=== PATIENT | female | born 1965 | race Caucasian/White ===

== ENCOUNTER → 2023-12-18 08:06 | Outpatient (REF) | payer OTHER, SELFPAY ==
[2023-12-18 10:37] LABS: Urine Albumin Negative (Neg - Trace); Urine Bilirubin Negative (Negative); Urine Character Clear (Clear); Urine Color Yellow; Urine Glucose Negative (Negative); Urine Ketone Negative (Negative); Urine Leukocyte 1+ (Negative); Urine Nitrite Negative (Negative); Urine Occult Blood 3+ (Negative); Urine Specific Gravity 1.025 (<1.030); Urine Urobilinogen Negative (Neg - 1+)
[2023-12-18 11:02] LABS: % Basophils 1.1 % (0-2); % Eosinophils 4.8 % (0-6); % Immature Granulocytes 0.2 % (0-0.5); % Lymphocytes 33.3 % (20.5-51.1); % Monocytes 7.3 % (1.7-9.3); % Neutrophils 53.3 % (42.2-75.2); Absolute Basophils 0.1 10^3/uL (0-0.2); Absolute Eosinophils 0.3 10^3/uL (0-0.7); Absolute Lymphocytes 1.9 10^3/uL (1.2-3.4); Absolute Monocytes 0.4 10^3/uL (0.1-0.6); Hematocrit 43.6 % (37.0-47.0); Hemoglobin 14.1 g/dL (12.0-16.0); Mean Corp Hgb Conc. 32.3 g/dL (33.0-37.0); Mean Corpuscular Volume 89.7 fL (81.0-99.0); Mean Platelet Volume 9.9 fL (7.4-10.4); Nucleated Red Blood Cells % 0 %; Platelet Count 238 10^3/uL (130-400); Red Blood Cell Count 4.86 10^6/uL (4.20-5.40); Red Cell Dist. Width 13.9 % (11.5-14.5); White Blood Cell Count 5.6 10^3/uL (4.8-10.8)
[2023-12-18 11:05] LABS: ALT (SGPT) 15 U/L (0-35); AST (SGOT) 22 U/L (14-36); Albumin 4.5 g/dl (3.5-5.0); Alkaline Phosphatase 59 U/L (38-126); Blood Urea Nitrogen 22 mg/dl (7-17); Calcium 9.5 mg/dl (8.4-10.2); Carbon Dioxide 29 mmol/L (22-30); Chloride 105 mmol/L (98-107); Glucose 94 mg/dl (70-99); HDL Cholesterol 62 mg/dl; LDL Cholesterol, Calculated 176 mg/dl; Potassium 4.6 mmol/L (3.5-5.1); Sodium 141 mmol/L (135-145); Total Bilirubin 0.4 mg/dl (0.2-1.3); Total Cholesterol 263 mg/dl (50-199); Total Protein 6.8 g/dl (6.3-8.2); Triglyceride 126 mg/dl (10-149); Very Low Density Lipoprotein 25 mg/dl (0-30); eGFR > 60.00
[2023-12-18 11:12] LABS: Free T4 1.22 ng/dl (0.78-2.19)
[2023-12-18 11:26] LABS: TSH 1.24 uIU/ml (0.47-4.68)
[2023-12-18 12:35] LABS: Urine Squamous Cell 16-20 /LPF (Few); Urine Urothelial Cell 0-2 /LPF (FEW)
[2023-12-18 12:36] LABS: Urine Bacteria Few (Negative)
[2023-12-18 12:38] LABS: Glycohemoglobin (HgbA1c) 5.7 % (4.0-5.6)
== END ==
LOC: REG 08:06
PROVIDERS: ATTENDING PHYSICIAN Nurse Practitioner Family
DX: E78.2 Mixed hyperlipidemia (principal); Z00.00 Encounter for general adult medical examination without abnormal findings
CPT/HCPCS: 36415; 80053; 80061; 81003; 81015; 83036; 84439; 84443; 85025; 87086

== ENCOUNTER → 2024-02-11 12:43 | Outpatient (REF) | payer OTHER, SELFPAY | LOC: HWRAD 12:43 | PROVIDERS: ATTENDING PHYSICIAN Nurse Practitioner Family | DX: R31.0 Gross hematuria (principal) | CPT/HCPCS: 76770 ==

== ENCOUNTER → 2024-02-27 14:25 | Outpatient (REF) | payer OTHER, SELFPAY | LOC: WDC 14:25 | PROVIDERS: ATTENDING PHYSICIAN Family Medicine | DX: Z12.31 Encounter for screening mammogram for malignant neoplasm of breast (principal) | CPT/HCPCS: 77063; 77067 ==

== ENCOUNTER → 2024-04-10 06:28 | Day surgery (SDC) | payer OTHER, SELFPAY | LOC: GI 06:28 | PROVIDERS: ATTENDING PHYSICIAN Internal Medicine Gastroenterology | DX: Z12.11 Encounter for screening for malignant neoplasm of colon (principal) | CPT/HCPCS: G0121 ==

== ENCOUNTER 2024-04-21 06:32 | Day surgery (SDC) | payer OTHER, SELFPAY | END 2024-04-21 09:49 | disposition home or self-care (01) | LOC: GI 06:32 | PROVIDERS: ATTENDING PHYSICIAN Surgery | DX: Z12.11 Encounter for screening for malignant neoplasm of colon (principal); K57.30 Diverticulosis of large intestine without perforation or abscess without bleeding; K56.699 Other intestinal obstruction unspecified as to partial versus complete obstruction; Z86.0100 Personal history of colon polyps, unspecified | CPT/HCPCS: G0105 ==

== ENCOUNTER → 2024-05-04 12:51 | Outpatient (REF) | payer OTHER, SELFPAY | LOC: HWRAD 12:51 | PROVIDERS: ATTENDING PHYSICIAN Surgery; FAMILY PHYSICIAN Family Medicine | DX: K57.30 Diverticulosis of large intestine without perforation or abscess without bleeding (principal) | CPT/HCPCS: 74177; Q9967 ==

== ENCOUNTER 2024-12-12 02:01 | Emergency (ER) | payer OTHER, SELFPAY ==
[2024-12-12 02:12] VITALS: BP 141/91
[2024-12-12 02:20] VITALS: BP 141/89
[2024-12-12 03:00] VITALS: BP 131/79
[2024-12-12 03:19] LABS: Hematocrit 39.3 % (37.0-47.0); Hemoglobin 13.0 g/dL (12.0-16.0); Mean Corp Hgb Conc. 33.1 g/dL (33.0-37.0); Mean Corpuscular Volume 85.1 fL (81.0-99.0); Nucleated Red Blood Cells % 0 %; Platelet Count 213 10^3/uL (130-400); Red Cell Dist. Width 13.5 % (11.5-14.5)
--- NOTE | 2024-12-12 03:31 | ED.GENMED ---
History of Present Illness
<Juan Nagel MD, Resident - Last Filed: 12/12/24 05:44>
General
Chief Complaint: Chest Pain
Source: patient
Exam Limitations: none
Time Seen by Provider: 12/12/24 03:16
Nursing documentation reviewed up to this point in time: agreed with
History of Present Illness
History of Present Illness:
This is a 59-year-old female with no significant past medical history presenting in the emergency department with complaints of chest discomfort that has been ongoing for the last few days. She states that she is under a lot of stress as her
partner has a stage IV cancer and she has been driving back and forth from [place] recently for her partner's treatment. She reports no fevers or chills denies any trouble breathing. States that the pain gets worse when she lays down and the pain
is mostly limited to lateral side of her left breast. Denies any radiation of the pain. Denies any diaphoresis. Denies any family history of any CAD. Denies any recent sickness or sick contacts. Denies any nausea or vomiting. States sometimes
she feel lightheaded and it feels like she is carrying a lot of weight.
Past History
<Juan Nagel MD, Resident - Last Filed: 12/12/24 05:44>
Past History
ED Past Medical History: Asthma
ED Past Surgical History: Cholecystectomy
Patient has exhibited threatening behavior?: No
Social History
Tobacco: Non-smoker
Alcohol: None
Drug: None
Personal: Partner
Living: with family
Employment: Employed
Family History
Family History: Other
Review of Systems
<Juan Nagel MD, Resident - Last Filed: 12/12/24 05:44>
Review of Systems
Allergies reviewed?: Yes
All Other Systems: ROS reviewed and negative except as documented in HPI and ROS
Phy Exam
<Juan Nagel MD, Resident - Last Filed: 12/12/24 05:44>
General Physical Exam
General Presentation: well appearing and no apparent distress
General age: appears stated age
General Skin: warm
General Habitus: normal
General Mental: alert
Cardiovascular Exam
Cardiovascular Exam: regular rate/rhythm, no JVD and no murmur
Pulmonary Exam
Pulmonary Exam: lungs clear, no respiratory distress, no crackles and no cough
Gastrointestinal Exam
Gastrointestinal Exam: normal bowel sounds, non tender, soft, non distended and no cva tenderness
Neurological Exam
Neurological Exam: alert and oriented x3
Musculoskeletal Exam
Musculoskeletal Exam: full ROM
Skin Exam
Skin Exam: other (No rashes on around chest and left breast; dish technician (KASH Villanueva) present during exam)
Scores
<Juan Nagel MD, Resident - Last Filed: 12/12/24 05:44>
Heart Score for Chest Pain Patients
STEMI patient?: No
History: Slightly or Non-Suspicious
ECG: Normal
Age: >45 - <65 years
Risk Factors: No Risk Factors
Troponin: </= Normal Limit
Heart Score for Chest Pain Patients: 1
Heart Score Risk: 2.5% MACE over next 6 weeks
<Lalit Reis, DO - Last Filed: 12/12/24 06:29>
Heart Score for Chest Pain Patients
Heart Score for Chest Pain Patients: 1
Heart Score Risk: 2.5% MACE over next 6 weeks
Course
<Juan Nagel MD, Resident - Last Filed: 12/12/24 05:44>
Orders/Labs/Results
Orders:
Orders
12/12/24 02:26
EKG [Electrocardiogram (*1)] Urgent
Reason for Study: Chest Pain
EKG- Treatment ONCE
12/12/24 03:06
Cardiac Monitoring- Treatment ONCE
EKG- Treatment ONCE
Pulse Ox/spot Check [RESP] Urgent
Quantity: 1
Special Instructions: ON ROOM AIR
12/12/24 03:11
Complete Blood Count/With Diff Urgent
Comprehensive Metabolic Panel Urgent
Troponin I Urgent
12/12/24 04:08
Ondansetron Injectable [Zofran] 4 mg IV NOW STA
12/12/24 05:16
Ketorolac [Toradol] 30 mg IV NOW STA
12/12/24 05:39
Pantoprazole [Protonix IV] 40 mg IV NOW STA
Abnormal Lab Results
12/12/24
03:11
Chloride 108 H mmol/L
(98-107)
BUN 23 H mg/dl
(7-17)
Glucose 107 H mg/dl
(70-99)
12/12/24 03:11
12/12/24 03:11
Vital Signs
Initial and Last Documented VS:
Initial Vital Signs
Temp Pulse Resp BP Pulse Ox
98.0 F 74 16 141/91 97
12/12/24 02:12 12/12/24 02:12 12/12/24 02:12 12/12/24 02:12 12/12/24 02:12
Last Documented Vital Signs
Temp Pulse Resp BP Pulse Ox
98.0 F 66 16 128/75 97
12/12/24 02:12 12/12/24 05:00 12/12/24 05:00 12/12/24 05:00 12/12/24 03:32
Yaniralt;Lalit Reis, - Last Filed: 12/12/24 06:29>
Orders/Labs/Results
Orders:
Orders
12/12/24 02:26
EKG [Electrocardiogram (*1)] Urgent
Reason for Study: Chest Pain
EKG- Treatment ONCE
12/12/24 03:06
Cardiac Monitoring- Treatment ONCE
EKG- Treatment ONCE
Pulse Ox/spot Check [RESP] Urgent
Quantity: 1
Special Instructions: ON ROOM AIR
12/12/24 03:11
Complete Blood Count/With Diff Urgent
Comprehensive Metabolic Panel Urgent
Troponin I Urgent
12/12/24 04:08
Ondansetron Injectable [Zofran] 4 mg IV NOW STA
12/12/24 05:16
Ketorolac [Toradol] 30 mg IV NOW STA
12/12/24 05:39
Pantoprazole [Protonix IV] 40 mg IV NOW STA
Abnormal Lab Results
12/12/24
03:11
Chloride 108 H mmol/L
(98-107)
BUN 23 H mg/dl
(7-17)
Glucose 107 H mg/dl
(70-99)
12/12/24 03:11
12/12/24 03:11
Vital Signs
Initial and Last Documented VS:
Initial Vital Signs
Temp Pulse Resp BP Pulse Ox
98.0 F 74 16 141/91 97
12/12/24 02:12 12/12/24 02:12 12/12/24 02:12 12/12/24 02:12 12/12/24 02:12
Last Documented Vital Signs
Temp Pulse Resp BP Pulse Ox
98.0 F 66 16 128/75 97
12/12/24 02:12 12/12/24 05:00 12/12/24 05:00 12/12/24 05:00 12/12/24 03:32
<Juan Nagel MD, Resident - Last Filed: 12/12/24 05:44>
MDM/Problems Addressed
Differential Diagnosis Includes:
Muscular vs cardiac vs gerd vs less likely pleuritic vs unlikely PE
MDM/Problems Addressed:
EKG normal sinus rhythm
CBC unremarkable
CMP, troponin pending
update:
CMP with BUN of 23, blood glucose of 107, troponin undetectable
Patient reported some nausea given IV Zofran
Update: Patient reports discomfort which seems mostly muscular in nature will give IV Toradol 1 dose, will get a chest x-ray.
If x-ray is negative will discharge
update:
Patient refused x-ray and states that she thinks there is some discomfort in her throat because of acid reflux and requested a medication.
One-time IV Protonix.
Patient woud like to go home. She is stable for discharge home. Advised to follow-up with outpatient PCP. Return precautions reviewed.
<Juna Nagel MD, Resident - Last Filed: 12/12/24 05:44>
*Pulse Oximetry
SaO2: 97
Oxygen Mode of Delivery: Room air
Patient hypoxic: no
*Critical Care Note
Total Time (30-74mins, 75-104mins- exclusive of procedures): Not Applicable
ED Attending Note
<Juan Nagle MD, Resident - Last Filed: 12/12/24 05:44>
-
Portions of this chart may have been created with voice recognition software.� Occasional wrong word or��sound alike� substitutions may have occurred due to the inherent limitations of voice recognition software.
<Lalit Reis, - Last Filed: 12/12/24 06:29>
ED Attending Note
Patient seen and examined by attending physician: Yes
I performed a history and physical exam of patient and discussed management with resident, I reviewed resident's note and agree with documented findings and plan of care.: Yes
ED Attending Note:
Seen with resident examined independently 59-year-old female under a lot of stress lately due to illness of her spouse reproducible left-sided chest pain, EKG troponin noted doubt PE by history physical stable vital signs no tachypnea no tachycardia
no hypoxia no calf pain
Discharge Plan
Departure
Patient Disposition: Home (Routine Discharge)
Date of Disposition: 12/12/24
Time of Disposition: 05:42
Patient with high blood pressure during this ER visit?: Yes
Condition: Good
Discharge Problem:
Chest pain, muscular
Instructions: Chest Pain That Is Not Caused by the Heart (DC), Acid Reflux and GERD in Adults (DC), BLOOD PRESSURE
Prescriptions:
No Action
fexofenadine-pseudoephedrine [Elizabeth-D 24 Hour] 180-240 mg Tablet Extended Release 24 Hr
1 tab PO DAILY
sucralfate [Carafate] 100 mg/mL suspension
10 ml PO ACHS Qty: 200 0RF
pantoprazole [Protonix] 20 mg tablet,delayed release (DR/EC)
20 mg PO DAILY Qty: 20 0RF
Referrals:
Rene Sarkar DO [Family Provider, Family Practice] - Follow up in 1 week
Interventions
Interventions:
*Risk Screen - Suicide Last Done: 12/12/24 02:05
*General Assessment Last Done: 12/12/24 03:00
*Neglect/Abuse Screening Last Done: 12/12/24 03:00
*ED- Fall Risk Assessment Last Done: 12/12/24 03:00
*Nursing Disposition Last Done: 12/12/24 05:52
ED- Cardiac Assessment Last Done: 12/12/24 03:00
Discharge Date and Time
Discharge Date/Time: 12/12/24 05:53
Print Language: NAURUAN
[2024-12-12 03:42] LABS: ALT (SGPT) 13 U/L (0-35); AST (SGOT) 21 U/L (14-36); Albumin 4.5 g/dl (3.5-5.0); Alkaline Phosphatase 43 U/L (38-126); Blood Urea Nitrogen 23 mg/dl (7-17); Calcium 9.2 mg/dl (8.4-10.2); Carbon Dioxide 23 mmol/L (22-30); Chloride 108 mmol/L (98-107); Glucose 107 mg/dl (70-99); Potassium 4.1 mmol/L (3.5-5.1); Sodium 139 mmol/L (135-145); Total Protein 6.8 g/dl (6.3-8.2); eGFR > 60.00
[2024-12-12 03:55] LABS: Troponin I < 0.012 ng/ml
[2024-12-12 04:00] VITALS: BP 134/76
[2024-12-12] MEDS: ZOFRAN 4 MG IV (04:13)
[2024-12-12 05:00] VITALS: BP 128/75
[2024-12-12] MEDS: TORADOL 30 MG IV (05:34)
[2024-12-12] MEDS: PROTONIX IV 40 MG IV (05:41)
== END 2024-12-12 05:53 | disposition home or self-care (01) ==
LOC: EMR 02:01
PROVIDERS: EMERGENCY PHYSICIAN Emergency Medicine; FAMILY PHYSICIAN Family Medicine
DX: R07.89 Other chest pain (principal); R03.0 Elevated blood-pressure reading, without diagnosis of hypertension
CPT/HCPCS: 99284; 96374; 96375 ×2; 80053; 84484; 85025; 93005; 99285

== ENCOUNTER → 2025-03-01 12:44 | Outpatient (REF) | payer OTHER, SELFPAY | LOC: WDC 12:44 | PROVIDERS: ATTENDING PHYSICIAN Nurse Practitioner Family | DX: Z12.31 Encounter for screening mammogram for malignant neoplasm of breast (principal) | CPT/HCPCS: 77063; 77067 ==

== ENCOUNTER → 2025-04-02 20:27 | Outpatient (REF) | payer OTHER, SELFPAY | LOC: MRI 3T 20:27 | PROVIDERS: ATTENDING PHYSICIAN Orthopaedic Surgery; FAMILY PHYSICIAN Family Medicine | DX: M24.811 Other specific joint derangements of right shoulder, not elsewhere classified (principal) | CPT/HCPCS: 73221 ==